=== PATIENT | male | born 1960 | race Caucasian/White ===

== ENCOUNTER 2020-05-03 11:28 | Emergency (ER) | payer OTHER ==
[~2020-05-03] VITALS: Ht 177.8 cm; Wt 104.5 kg
--- NOTE | 2020-05-03 11:47 | ED Fall/Injury ---
General Chief Complaint: Trauma-Non Activation Stated Complaint: FALL Nursing Triage Note: TO ED PER EMS WAS UNLOADING A BOX TRUCK AND FELL APX 5FT OUT OF BACK ON TO L SIDE C/O PAIN IN T SPINE AREA REDNESS NOTED. 100MCG OF FENTANYL GIVEN BY EMS. History of Present Illness Date Seen by Provider: May 03, 2020 Time Seen by Provider: 11:40 Initial Comments 59-year-old male presents with left lateral thorax pain/rib pain. Patient was unloading a box truck leaning up against a door. When the door open he fell approximately 5 feet and landed on his left side. He has some mild swelling to the left lateral aspect of his upper back. He has some pain with deep breaths but no shortness of breath. He denies any neck pain, he denies any vertebral pain. He was given 100 mcg of fentanyl prior to arrival by EMS. He was placed in a c-collar for precaution. He reports he did not hit his head or lose consciousness. Allergies and Home Medications Allergies Coded Allergies: No Known Drug Allergies (Verified Allergy, Unknown, 12/15/06) Home Medications Cyclobenzaprine HCl 10 Mg Tablet, 10 MG PO Q8H PRN for SPASMS Prescribed by: LESA SAHNI on 05/03/20 1323 Naproxen 500 Mg Tablet, 500 MG PO BID Prescribed by: LESA SAHNI on 05/03/20 1323 Patient Home Medication List Home Medication List Reviewed: Yes Review of Systems Review of Systems Constitutional: No chills, No dizziness, No fever, No weakness Eyes: No Symptoms Reported; Denies Blurred Vision, Denies Decreased Acuity Ears, Nose, Mouth, Throat: no symptoms reported Respiratory: No cough, No short of breath Cardiovascular: see HPI; No edema, No palpitations Gastrointestinal: No abdominal pain, No nausea, No vomiting Genitourinary: no symptoms reported Musculoskeletal: see HPI, back pain Skin: no symptoms reported Psychiatric/Neurological: No Symptoms Reported Past Yvhdnqy-Ygheme-Gxcwqb Hx Past Med/Social Hx: Reviewed Nursing Past Med/Soc Hx Patient Social History Alcohol Use: Denies Use Smoking Status: Never a Smoker Recent Infectious Disease Expo: No Past Medical History Reproductive Disorders: No Physical Exam Vital Signs Vital Signs - First Documented 05/03/20 11:28 Temp 36.2 Pulse 92 Resp 18 B/P (MAP) 123/87 (99) Pulse Ox 97 O2 Delivery Room Air Capillary Refill : Less Than 3 Seconds Height, Weight, BMI Height: '" Weight: lbs. oz. kg; 33.00 BMI Method: General Appearance: mild distress HEENT: PERRL/EOMI Neck: No tender lateral, No tender midline; other (C-collar placed prior to arrival) Cardiovascular: normal peripheral pulses, regular rate, rhythm Respiratory: lungs clear, normal breath sounds, other (Tenderness left lateral posterior upper thorax) Gastrointestinal: non tender, soft Pelvic: other (No tenderness in the pelvis) Back: No vertebral tenderness; other (left lateral rib tenderness) Extremities: normal range of motion, normal inspection Neurologic/Psychiatric: alert, normal mood/affect, oriented x 3 Skin: other (Mild swelling over the left lateral ribs) [place] Coma Score Best Eye Response: (4) Open Spontaneously Best Verbal Response: (5) Oriented Best Motor Response: (6) Obeys Commands Progress/Results/Core Measures Results/Orders My Orders Orders - SAHNI,LESA L DO Ribs/Unilateral With Chest (05/03/20 11:43) Cervical Spine 3 Views Or Less (05/03/20 11:43) Thoracic Spine, 2 Views Only (05/03/20 11:43) Chest Pa/Lat (2 View) (05/03/20 13:04) Ketorolac Injection (Toradol Injection) (05/03/20 13:10) Orphenadrine Inj (Ed Only) (Norflex Inje (05/03/20 13:10) Vital Signs/I&O 05/03/20 11:28 Temp 36.2 Pulse 92 Resp 18 B/P (MAP) 123/87 (99) Pulse Ox 97 O2 Delivery Room Air Blood Pressure Mean: 99 Progress Progress Note : Progress Note Patient's thorax, cervical and rib x-ray showed no acute fracture. Patient with contusion on left posterior thorax/ribs. Recommend ice for 24 to 36 hours and warm moist heat to affected area. 4% topical lidocaine with menthol. Naproxen and Norflex for muscle spasms. Patient will begin off work until 07/08/2020. If patient needs further time off for further pain medication he needs to follow-up with his primary care provider or the Worker's Comp. physician through his employer. Patient with incidental finding on right side thorax. This is not related to the patient's injury. Patient is here for a workers comp related injury. I discussed with patient he will need to establish with a primary care provider and obtain an outpatient CT for further evaluation of the abnormality on x-ray. Patient voices understanding and agrees to obtain a primary care provider. Patient is otherwise stable and will be discharged home. Diagnostic Imaging Diagonstic Imaging: Xray Plain Films/CT/US/NM/MRI: c-spine Comments [facility], [place] [id number] PT STATUS: REG ER : 1960 PHYSICIAN: LESA SAHNI DO ADMIT DATE: 05/03/20/ER Signed Date of Exam:05/03/20 CERVICAL SPINE 3 VIEWS OR LESS INDICATION: Neck pain. COMPARISON: Imaging from the same date. TECHNIQUE: Four radiographs of the cervical spine dated 05/03/2020. FINDINGS: The alignment of the cervical spine is well maintained; however, the cervicothoracic junction is not well seen and therefore not optimally evaluated. The vertebral body heights are well-maintained. No significant disc space height loss within the [id number]. Scattered facet joint degenerative changes. The dens appears unremarkable. The prevertebral soft tissues are unremarkable. IMPRESSION: No acute osseous abnormality within the limits of the exam. Diagonstic Imaging: Xray Plain Films/CT/US/NM/MRI: chest Comments [facility] [place] [facility] [id number] PT STATUS: REG ER : 1960 PHYSICIAN: LESA SAHNI DO ADMIT DATE: 05/03/20/ER Signed Date of Exam:05/03/20 RIBS/UNILATERAL WITH CHEST INDICATION: Pain. COMPARISON: Imaging from same date and from 02/12/2011 TECHNIQUE: 4 radiographs of the chest and left-sided ribs dated 05/03/2020 FINDINGS: The cardiac silhouette is within normal limits in size. No significant pulmonary vascular congestion. Tortuosity of the descending thoracic aorta. 3 cm peripherally hyperdense lesion is identified overlying the right upper lung near the ends of the right 1st and 2nd ribs. The lungs otherwise appear clear of focal pulmonary opacity. No pleural effusion. No pneumothorax. No displaced or healing rib fracture. Degenerative changes within the thoracic spine. IMPRESSION: 3 cm peripherally hyperdense lesion overlying the right upper lung. This is favored to simply relate to the right 1st and 2nd rib ends, though pulmonary nodule not totally excluded. Recommend repeat frontal radiograph of the chest with AP lordotic view for further evaluation. No displaced or healing left-sided rib fractures. No pneumothorax. Diagonstic Imaging: Xray Plain Films/CT/US/NM/MRI: other [facility] [place] [place] [facility]: [facility] REC#: [id number] PT STATUS: REG ER : 1960 PHYSICIAN: LESA SAHNI DO ADMIT DATE: 05/03/20/ER Signed Date of Exam:05/03/20 THORACIC SPINE, 2 VIEWS ONLY INDICATION: Fall with back pain. FINDINGS: AP, lateral and swimmer's views of thoracic spine reveal no acute fracture or malalignment. There is no evidence of paraspinous hematoma. There is mild diffuse endplate spurring. IMPRESSION: Mild diffuse thoracic spondylosis. No acute abnormality is identified. Diagonstic Imaging: Xray Plain Films/CT/US/NM/MRI: chest Comments [facility], [facility]. [place], [place] NAME: [facility] REC#: [id number] PT STATUS: REG ER : 1960 PHYSICIAN: LESA SAHNI DO ADMIT DATE: 05/03/20/ER Draft Date of Exam:05/03/20 CHEST PA/LAT (2 VIEW) INDICATION: Potential mass. Abnormality seen on recent chest x-ray with the apical lordotic imaging for further evaluation. Examination 2 view chest 05/03/2020 at 1:26 PM compared to 05/03/2020 at 12:28 PM FINDINGS: 2 views of the chest redemonstrate the hyperdensity within the peripheral right upper lung which now projects along the course of the right posterior 4th rib. This would suggest a likely intrathoracic abnormality versus an abnormality along the scapula. CT imaging could provide further characterization. Remaining chest is stable IMPRESSION: 1. Sclerotic appearing abnormality within the right upper chest laterally nonspecific in nature further imaging recommended. Departure Impression Primary Impression: Contusion of thoracic wall Qualified Codes: S20.222A - Contusion of left back wall of thorax, initial encounter Additional Impressions: Contusion of rib on left side Qualified Codes: S20.212A - Contusion of left front wall of thorax, initial encounter Abnormal finding on chest xray Disposition: HOME, SELF-CARE Condition: Stable Departure-Patient Inst. Patient Instructions: Rib Fracture or Bruised Rib ED, Blunt Chest Trauma (DC) Add. Discharge Instructions: Please follow-up with a primary care provider early next week for an outpatient CT of your chest and further evaluation of the abnormality noted on chest x-ray ice to affected area for 24 to 48 hours then warm moist heat 4% topical lidocaine with menthol, cream gel or patch use as directed on package All discharge instructions reviewed with patient and/or family. Voiced understanding. Scripts Naproxen (Naprosyn) 500 Mg Tablet 500 MG PO BID, #30 TAB 0 Refills Prov: LESA SAHNI DO 05/03/20 Cyclobenzaprine HCl (Cyclobenzaprine HCl) 10 Mg Tablet 10 MG PO Q8H PRN for SPASMS, #15 TAB 0 Refills Prov: LESA SAHNI DO 05/03/20 LESA SAHNI DO May 03, 2020 11:47
--- NOTE | 2020-05-03 12:43 | Diagnostic Imaging Report ---
INDICATION: Neck pain. COMPARISON: Imaging from the same date. TECHNIQUE: Four radiographs of the cervical spine dated 05/03/2020. FINDINGS: The alignment of the cervical spine is well maintained; however, the cervicothoracic junction is not well seen and therefore not optimally evaluated. The vertebral body heights are well-maintained. No significant disc space height loss within the [id number]. Scattered facet joint degenerative changes. The dens appears unremarkable. The prevertebral soft tissues are unremarkable. IMPRESSION: No acute osseous abnormality within the limits of the exam. Dictated by: Dictated on workstation # [id number]
--- NOTE | 2020-05-03 12:44 | Diagnostic Imaging Report ---
INDICATION: Fall with back pain. FINDINGS: AP, lateral and swimmer's views of thoracic spine reveal no acute fracture or malalignment. There is no evidence of paraspinous hematoma. There is mild diffuse endplate spurring. IMPRESSION: Mild diffuse thoracic spondylosis. No acute abnormality is identified. Dictated by: Dictated on workstation # [id number]
--- NOTE | 2020-05-03 12:54 | Diagnostic Imaging Report ---
INDICATION: Pain. COMPARISON: Imaging from same date and from 02/12/2011 TECHNIQUE: 4 radiographs of the chest and left-sided ribs dated 05/03/2020 FINDINGS: The cardiac silhouette is within normal limits in size. No significant pulmonary vascular congestion. Tortuosity of the descending thoracic aorta. 3 cm peripherally hyperdense lesion is identified overlying the right upper lung near the ends of the right 1st and 2nd ribs. The lungs otherwise appear clear of focal pulmonary opacity. No pleural effusion. No pneumothorax. No displaced or healing rib fracture. Degenerative changes within the thoracic spine. IMPRESSION: 3 cm peripherally hyperdense lesion overlying the right upper lung. This is favored to simply relate to the right 1st and 2nd rib ends, though pulmonary nodule not totally excluded. Recommend repeat frontal radiograph of the chest with AP lordotic view for further evaluation. No displaced or healing left-sided rib fractures. No pneumothorax. Dictated by: Dictated on workstation # [id number]
[2020-05-03] MEDS ORDERED: KETOROLAC 30 MG/ML VIAL IVP STA (13:10)
[2020-05-03] MEDS ORDERED: ORPHENADRINE 60 MG/2 ML (NORFLEX) AMP (ED ONLY) IV STA (13:10)
[2020-05-03] MEDS ORDERED: NAPR-1071 PO (13:23)
[2020-05-03] MEDS ORDERED: CYCL10TA9 PO (13:23)
--- NOTE | 2020-05-03 14:08 | Diagnostic Imaging Report ---
INDICATION: Potential mass. Abnormality seen on recent chest x-ray with the apical lordotic imaging for further evaluation. Examination 2 view chest 05/03/2020 at 1:26 PM compared to 05/03/2020 at 12:28 PM FINDINGS: 2 views of the chest redemonstrate the hyperdensity within the peripheral right upper lung which now projects along the course of the right posterior 4th rib. This would suggest a likely intrathoracic abnormality versus an abnormality along the scapula. CT imaging could provide further characterization. Remaining chest is stable IMPRESSION: 1. Sclerotic appearing abnormality within the right upper chest laterally nonspecific in nature further imaging recommended. Dictated by: Dictated on workstation # [id number]
[2020-05-03 14:46] VITALS: BP 124/75
== END 2020-05-03 14:43 | disposition home or self-care (01) ==
LOC: EDUNIT# 11:28 → ER 11:33
DX: S20.222A Contusion of left back wall of thorax, initial encounter (principal); R91.8 Other nonspecific abnormal finding of lung field; W18.30XA Fall on same level, unspecified, initial encounter
CPT/HCPCS: 71046; 71101; 72040; 72070

== ENCOUNTER → 2020-06-15 | Outpatient (CLI) | payer BC ==
[~2020-06-15] MED LIST: CATHETER FLUSH 10 ML SYR IV PRN; CYCL10TA9 PO; HOLD METFORMIN - RECEIVED CONTRAST 20 ML VIAL IV SCH; IOHEXOL 350 MG/ML 100 ML (OMNIPAQUE 350) VIAL IV ONE; NAPR-1071 PO; NS 100 ML (IVPB) BAG IV ONE
[2020-06-15 12:37] LABS: ALANINE AMINOTRANSFERASE 21 U/L (0-55); ALBUMIN 4.5 GM/DL (3.2-4.5); ALKALINE PHOSPHATASE 97 U/L (40-136); BILIRUBIN,TOTAL 0.9 MG/DL (0.1-1.0); BUN/CREATININE RATIO 15; CARBON DIOXIDE 28 MMOL/L (21-32); CHLORIDE 103 MMOL/L (98-107); CREATININE SERUM 0.79 MG/DL (0.60-1.30); GFR ESTIMATED > 60; GLUCOSE 95 MG/DL (70-105); POTASSIUM 4.6 MMOL/L (3.6-5.0); SODIUM 139 MMOL/L (135-145); TOTAL PROTEIN 7.8 GM/DL (6.4-8.2)
--- NOTE | 2020-06-15 15:23 | Diagnostic Imaging Report ---
EXAMINATION: CT chest with intravenous contrast. TECHNIQUE: Multiple contiguous axial images were obtained through the chest after the uneventful administration of intravenous contrast. All CT scans use one or more of the following dose optimizing techniques: automated exposure control, MA and/or KvP adjustment based on patient size and exam type or iterative reconstruction. HISTORY: Abnormal findings on chest radiograph COMPARISON: Chest radiograph 05/03/2020 FINDINGS: Thyroid: The thyroid is normal. Mediastinum: Heart size is normal without significant pericardial effusion. The aorta is normal in caliber. No suspicious lymphadenopathy. Lungs and airways: The lungs are clear without consolidation, pleural effusion, or pneumothorax. No suspicious pulmonary nodule. The airways are normal. Upper abdomen: The subphrenic structures are normal. Musculoskeletal: There are changes of the spine without compression fracture. There is a expansile, sclerotic lesion arising from the anterior right scapula which measures 2.7 cm (series 2 image 45). This likely corresponds to the abnormality seen on prior radiograph. IMPRESSION: 1. A 2.7 cm sclerotic, expansile lesion arising from the right scapula corresponding to abnormality seen on prior radiograph. Recommend further evaluation with MRI with and without IV contrast. 2. No other acute abnormality in the chest. Dictated by: Dictated on workstation # [id number]
== END ==
LOC: RAD 13:15
PROVIDERS: ATTEND Nurse Practitioner Family
DX: S22.42XD Multiple fractures of ribs, left side, subsequent encounter for fracture with routine healing (principal); M75.92 Shoulder lesion, unspecified, left shoulder; R93.89 Abnormal findings on diagnostic imaging of other specified body structures
CPT/HCPCS: 36415; 71260; 80053

== ENCOUNTER → 2020-07-02 | Outpatient (CLI) | payer BC ==
[~2020-07-02] MED LIST changes: -CATHETER FLUSH 10 ML SYR IV PRN; +GADOBUTROL 10 MMOL/10 ML (GADAVIST) VIAL IV ONE; -HOLD METFORMIN - RECEIVED CONTRAST 20 ML VIAL IV SCH; -IOHEXOL 350 MG/ML 100 ML (OMNIPAQUE 350) VIAL IV ONE; -NS 100 ML (IVPB) BAG IV ONE
--- NOTE | 2020-07-02 14:11 | Diagnostic Imaging Report ---
Exam: MRI right scapula without contrast. Date: July 02, 2020. Indication: 59-year-old male, fall in April. Evaluation of incidentally noted bone lesion of the scapula on prior CT chest. Comparison: CT chest with intravenous contrast June 15, 2020. Technique: Multiple noncontrast MRI sequences were obtained of the right scapula. Findings: Arising from the inferior aspect of the scapular body, there is a lesion contiguous with the intramedullary cavity measuring 3.0 x 1.4 x 2.3 cm in size diagnostic for an enchondroma. There is no abnormally thickened cartilage cap. There is no adjacent bursitis or other soft tissue abnormality. There is no identified acute fracture. There is no other marrow signal abnormality. There is a 14 mm wide full-thickness tear of the supraspinatus tendon with tendon retraction to the level of the superior humeral head. There is no fatty muscle atrophy. There are mild acromioclavicular degenerative changes without large undersurface osteophyte. Impression: 1. Benign osteochondroma arising from the inferior aspect of the scapular body without complication. The osteochondroma measures 3.0 x 1.4 x 2.3 cm in size. 2. 14 mm wide full-thickness tear of the supraspinatus tendon with tendon retraction to the level of the superior humeral head. No fatty muscle atrophy. 3. Mild acromioclavicular degenerative changes without undersurface osteophyte. 4. No acute fracture or other area of abnormal marrow signal. Dictated by: Dictated on workstation # [id number]
== END ==
LOC: RAD 09:10
PROVIDERS: ATTEND Pediatrics
DX: S46.011A Strain of muscle(s) and tendon(s) of the rotator cuff of right shoulder, initial encounter (principal); D16.01 Benign neoplasm of scapula and long bones of right upper limb; M19.011 Primary osteoarthritis, right shoulder; W19.XXXA Unspecified fall, initial encounter
CPT/HCPCS: 71550

== ENCOUNTER 2022-01-29 09:38 | Emergency (ER) | payer BC ==
[~2022-01-29] VITALS: Ht 177 cm; Wt 104.5 kg
[~2022-01-29 09:38] MED LIST changes: +CYCL10TA25 PO; -CYCL10TA9 PO; -GADOBUTROL 10 MMOL/10 ML (GADAVIST) VIAL IV ONE
[2022-01-29] MEDS ORDERED: RT-ALBUTEROL HFA 8.5 GM INHALER IH STA (09:56)
[2022-01-29] MEDS ORDERED: LACTATED RINGERS 1,000 ML IV ONE (10:00)
[2022-01-29 10:28] LABS: BASOPHILS % (AUTO) 0 % (0-10); EOSINOPHILS % (AUTO) 0 % (0-10); HEMATOCRIT 51 % (40-54); HEMOGLOBIN 17.3 g/dL (13.3-17.7); LYMPHOCYTES # (AUTO) 0.9 10^3/uL (1.0-4.0); LYMPHOCYTES % (AUTO) 7 % (12-44); MEAN CORPUSCULAR HEMOGLOBIN 31 pg (25-34); MEAN CORPUSCULAR HGB CONC 34 g/dL (32-36); MEAN CORPUSCULAR VOLUME 90 fL (80-99); MEAN PLATELET VOLUME 10.6 fL (9.0-12.2); MONOCYTES # (AUTO) 0.9 10^3/uL (0.0-1.0); MONOCYTES % (AUTO) 7 % (0-12); NEUTROPHILS % (AUTO) 85 % (42-75); PLATELET COUNT 211 10^3/uL (130-400); WHITE BLOOD COUNT 12.9 10^3/uL (4.3-11.0)
--- NOTE | 2022-01-29 10:30 | Diagnostic Imaging Report ---
INDICATION: Shortness of breath. Frontal chest obtained at 10:23 a.m. compared to 05/03/2020 FINDINGS: Heart and mediastinal silhouette are normal in appearance. The lungs are clear. There is no pneumothorax or pleural fluid. There are old left-sided rib fractures. There is a calcification over the right chest which in correlation with previous CT of 06/15/2020 appears to be exostosis of the scapula. IMPRESSION: Chronic bony changes as above with no acute process in the chest. Dictated by: Dictated on workstation # [id number]
[2022-01-29 10:37] LABS: ALBUMIN 4.5 GM/DL (3.2-4.5); POTASSIUM 4.3 MMOL/L (3.6-5.0)
[2022-01-29 10:38] LABS: CALCIUM 9.1 MG/DL (8.5-10.1)
[2022-01-29 10:39] LABS: TOTAL PROTEIN 7.8 GM/DL (6.4-8.2)
[2022-01-29 10:43] LABS: CREATININE SERUM 0.85 MG/DL (0.60-1.30)
[2022-01-29 10:47] LABS: LYMPHOCYTES % (MANUAL) 10 %; MONOCYTES % (MANUAL) 10 %; NEUTROPHILS % (MANUAL) 80 %; RBC MORPH NORMAL
[2022-01-29] MEDS ORDERED: RX-OSELTAMIVIR 75 MG (TAMIFLU) BOX OF 10 PO STA (11:10)
[2022-01-29] MEDS ORDERED: AZITHROMYCIN 250 MG TAB (ZITHROMAX) PO ONE (11:15)
[2022-01-29] MEDS ORDERED: methylPREDNISolone 125 MG (Solu-MEDROL) VIAL IVP ONE (11:15)
--- NOTE | 2022-01-29 11:18 | ED General ---
General Chief Complaint: Respiratory Problems Stated Complaint: SOB | LIGHTHEADED | BODY ACHES | Nursing Triage Note: PT STATES COUGH AND BODY ACHES SINCE YESTERDAY, DIARRHEA, CHILLS Source of Information: Patient, Family Exam Limitations: No Limitations History of Present Illness Date Seen by Provider: Jan 29, 2022 Time Seen by Provider: 09:50 Initial Comments This 61-year-old gentleman presents to the emergency room with abrupt onset of flulike symptoms yesterday including cough, myalgia, chills, diarrhea, lightheadedness, and shortness of breath. He is wheezing and tachypneic on exam. Allergies and Home Medications Allergies Coded Allergies: No Known Drug Allergies (Verified , 12/15/06) Patient Home Medication List Home Medication List Reviewed: Yes Azithromycin (Azithromycin) 250 Mg Tablet, 250 MG PO DAILY Prescribed by: THONY ISSA on 01/29/22 1120 Benzonatate (Benzonatate) 200 Mg Capsule, 200 MG PO TID PRN for COUGH Prescribed by: THONY ISSA on 01/29/22 1120 Cyclobenzaprine HCl (Cyclobenzaprine HCl) 10 Mg Tablet, 10 MG PO Q8H PRN for SPASMS Prescribed by: LESA SAHNI on 05/03/20 1323 Naproxen (Naprosyn) 500 Mg Tablet, 500 MG PO BID Prescribed by: LESA SAHNI on 05/03/20 1323 Prednisone (Prednisone) 20 Mg Tab, 40 MG PO DAILY Prescribed by: THONY ISSA on 01/29/22 1120 Review of Systems Review of Systems Constitutional: see HPI EENTM: no symptoms reported Respiratory: see HPI Cardiovascular: no symptoms reported Gastrointestinal: see HPI Genitourinary: no symptoms reported Musculoskeletal: see HPI Skin: no symptoms reported Psychiatric/Neurological: No Symptoms Reported Hematologic/Lymphatic: No Symptoms Reported Past Uivqdav-Aqdaqn-Ewfeao Hx Patient Social History Tobacco Use?: Yes Tobacco type used: Cigarettes Smoking Status: Current Everyday Smoker Substance use?: No Alcohol Use?: Yes Alcohol type: Beer Alcohol Frequency: Once in a while Past Medical History Surgeries: Yes Abdominal (EGD), Appendectomy Respiratory: Yes COPD Cardiac: No Neurological: No Reproductive Disorders: No Genitourinary: No Gastrointestinal: Yes (duodenitis) Gastroesophageal Reflux, Hiatal Hernia, Ulcer Musculoskeletal: No Endocrine: No HEENT: No 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 oz. kg; 33.00 BMI Method: General Appearance: WD/WN, Mild Distress, Obese HEENT: PERRL/EOMI, Normal ENT Inspection, Pharyngeal Erythema Neck: Normal Inspection; No JVD Respiratory: No Crackles; Wheezing, Other (Tachypnea) Cardiovascular: Regular Rate, Rhythm, No Edema, No Murmur Gastrointestinal: Non Tender, Soft Extremity: Normal Inspection, No Pedal Edema Neurologic/Psychiatric: Alert, Oriented x3, No Motor/Sensory Deficits Skin: Normal Color, Warm/Dry Progress/Results/Core Measures Suspected Sepsis SIRS Temperature: Pulse: 96 Respiratory Rate: 20 Laboratory Tests 01/29/22 10:19: White Blood Count 12.9H Blood Pressure 118 /72 Mean: 87 Laboratory Tests 01/29/22 10:19: Creatinine 0.85, Platelet Count 211, Total Bilirubin 1.0 Results/Orders Lab Results Laboratory Tests Test 01/29/22 09:57 01/29/22 10:19 Range/Units Influenza Type A (RT-PCR) Detected H Not Detecte Influenza Type B (RT-PCR) Not Detected Not Detecte SARS-CoV-2 RNA (RT-PCR) Not Detected Not Detecte White Blood Count 12.9 H 4.3-11.0 10^3/uL Red Blood Count 5.65 H 4.30-5.52 10^6/uL Hemoglobin 17.3 13.3-17.7 g/dL Hematocrit 51 40-54 % Mean Corpuscular Volume 90 80-99 fL Mean Corpuscular Hemoglobin 31 25-34 pg Mean Corpuscular Hemoglobin Concent 34 32-36 g/dL Red Cell Distribution Width 12.6 10.0-14.5 % Platelet Count 211 130-400 10^3/uL Mean Platelet Volume 10.6 9.0-12.2 fL Immature Granulocyte % (Auto) 0 % Neutrophils (%) (Auto) 85 H 42-75 % Lymphocytes (%) (Auto) 7 L 12-44 % Monocytes (%) (Auto) 7 0-12 % Eosinophils (%) (Auto) 0 0-10 % Basophils (%) (Auto) 0 0-10 % Neutrophils # (Auto) 11.0 H 1.8-7.8 10^3/uL Lymphocytes # (Auto) 0.9 L 1.0-4.0 10^3/uL Monocytes # (Auto) 0.9 0.0-1.0 10^3/uL Eosinophils # (Auto) 0.0 0.0-0.3 10^3/uL Basophils # (Auto) 0.0 0.0-0.1 10^3/uL Immature Granulocyte # (Auto) 0.0 0.0-0.1 10^3/uL Neutrophils % (Manual) 80 % Lymphocytes % (Manual) 10 % Monocytes % (Manual) 10 % Blood Morphology Comment NORMAL Sodium Level 137 135-145 MMOL/L Potassium Level 4.3 3.6-5.0 MMOL/L Chloride Level 102 98-107 MMOL/L Carbon Dioxide Level 25 21-32 MMOL/L Anion Gap 10 5-14 MMOL/L Blood Urea Nitrogen 20 H 7-18 MG/DL Creatinine 0.85 0.60-1.30 MG/DL Estimat Glomerular Filtration Rate 100 BUN/Creatinine Ratio 24 Glucose Level 126 H 70-105 MG/DL Calcium Level 9.1 8.5-10.1 MG/DL Corrected Calcium 8.7 8.5-10.1 MG/DL Total Bilirubin 1.0 0.1-1.0 MG/DL Aspartate Amino Transf (AST/SGOT) 28 5-34 U/L Alanine Aminotransferase (ALT/SGPT) 29 0-55 U/L Alkaline Phosphatase 73 40-136 U/L C-Reactive Protein High Sensitivity 11.08 H 0.00-0.50 MG/DL B-Type Natriuretic Peptide 45.9 <100.0 PG/ML Total Protein 7.8 6.4-8.2 GM/DL Albumin 4.5 3.2-4.5 GM/DL My Orders Orders - THONY KELLOGG MD Albuterol Inhaler (Albuterol) (01/29/22 09:56) Ed Iv/Invasive Line Start (01/29/22 09:57) Lactated Ringers (Lr 1000 Ml Iv Solution (01/29/22 10:00) Bnp Felicity (01/29/22 09:57) Cbc With Automated Diff (01/29/22 09:57) Comprehensive Metabolic Panel (01/29/22 09:57) Hs C Reactive Protein (01/29/22 09:57) Covid 19 Inhouse Test (01/29/22 09:57) Influenza A And B By Pcr (01/29/22 09:57) Chest 1 View, Ap/Pa Only (01/29/22 09:59) Manual Differential (01/29/22 10:19) Methylprednisolone Sod Succ (Solu-Medrol (01/29/22 11:15) Azithromycin Tablet (Zithromax Tablet) (01/29/22 11:15) Rx-Oseltamivir Caps (Rx-Tamiflu Caps) (01/29/22 11:10) Oseltamivir 75 Mg Capsule (Tamiflu 75 (01/30/22 09:00) Oseltamivir 75 Mg Capsule (Tamiflu 75 (01/30/22 09:00) Medications Given in ED Vital Signs/I&O 01/29/22 01/29/22 09:51 11:55 Temp 36.9 36.9 Pulse 96 89 Resp 20 20 B/P (MAP) 118/72 (87) 112/71 Pulse Ox 93 O2 Delivery Room Air Room Air Capillary Refill : Less Than 3 Seconds Blood Pressure Mean: 87 Progress Note : Progress Note Patient tested positive for influenza A. Had concern about his pulmonary exam. He had significant wheezing as well as tachypnea. This improved a little bit with albuterol inhaler. Oxygen saturation was running in the 93 to 94% range on room air. Solu-Medrol was administered. Due to elevated WBC and CRP in conjunction with influenza A and COPD exacerbation, azithromycin was also administered. See discharge instructions for further discussion. Diagnostic Imaging Diagonstic Imaging: Xray Plain Films/CT/US/NM/MRI: chest Comments Chest x-ray viewed by me and report reviewed. See report below: NAME: PRIYA NORIEGA [facility] REC#: [id number] PT STATUS: DEP ER : 1960 PHYSICIAN: THONY KELLOGG MD ADMIT DATE: 01/29/22/ER Signed Date of Exam:01/29/22 CHEST 1 VIEW, AP/PA ONLY INDICATION: Shortness of breath. Frontal chest obtained at 10:23 a.m. compared to 05/03/2020 FINDINGS: Heart and mediastinal silhouette are normal in appearance. The lungs are clear. There is no pneumothorax or pleural fluid. There are old left-sided rib fractures. There is a calcification over the right chest which in correlation with previous CT of 06/15/2020 appears to be exostosis of the scapula. IMPRESSION: Chronic bony changes as above with no acute process in the chest. Dictated by: Dictated on workstation # [id number] Dict: 01/29/22 1026 Trans: 01/29/22 1237 [id number] Interpreted by: JASMIN REYES MD Electronically signed by: JASMIN REYES MD 01/29/22 1237 Departure Impression Primary Impression: Influenza A Additional Impression: COPD exacerbation Disposition: 01 HOME, SELF-CARE Condition: Improved Departure-Patient Inst. Decision time for Depature: 11:13 Referrals: NO,LOCAL PHYSICIAN (PCP/Family) Primary Care Physician Patient Instructions: COPD Exacerbation, Adult ED, Flu, Adult (DC) Add. Discharge Instructions: Drink plenty of clear liquids to stay well-hydrated. Stop smoking as smoking will certainly worsen your symptoms. You may use nicot ine replacement such as patches, gum, or lozenges. Do not substitute with any other inhaled substances such as vape. Complete the entire 10 doses of Tamiflu. Do not stop taking this medication even if you are feeling better before it is complete. Start the azithromycin antibiotic tomorrow. You received your first dose in the emergency room. Obtain a pulse oximeter device from a local pharmacy or medical supply retailer. Check your oxygen a couple of times a day or when you are feeling more short of breath. If you are having multiple oxygen saturations less than 92% or any oxygen saturation less than 90%, return to the emergency room. Start prednisone this afternoon. Tomorrow, start taking prednisone early in the day so that it does not interrupt your sleep as it may cause jitteriness. Take prednisone with food or milk to avoid stomach upset. Avoid exposure to other individuals as influenza is very contagious. You may use Tylenol (acetaminophen) and/or ibuprofen for pain or fever. Tylenol dosing is 1000 mg every 6 hours, and ibuprofen dosing is 600 mg every 6 hours. Use your inhaler with a spacer up to 4 puffs in a 4-hour period of time. If you are requiring more than 4 puffs in 4 hours, return to the emergency room. Return to the ER if you have worsening symptoms despite following all of these instructions. All discharge instructions reviewed with patient and/or family. Voiced understanding. Scripts Prednisone (Prednisone) 20 Mg Tab 40 MG PO DAILY, #10 TAB 0 Refills Prov: THONY KELLOGG MD 01/29/22 Benzonatate (Benzonatate) 200 Mg Capsule 200 MG PO TID PRN for COUGH, #10 CAP Prov: THONY KELLOGG MD 01/29/22 Azithromycin (Azithromycin) 250 Mg Tablet 250 MG PO DAILY, #4 TAB Prov: THONY KELLOGG MD 01/29/22 Copy Copies To 1: [facility]/THONY MENG MD Jan 29, 2022 11:18
[2022-01-29] MEDS ORDERED: BENZ200C51 PO (11:20)
[2022-01-29] MEDS ORDERED: PRD20T PO (11:20)
[2022-01-29] MEDS ORDERED: AZIT250T12 PO (11:20)
[2022-01-29 11:55] VITALS: BP 112/71
[2022-01-30] MEDS ORDERED: OSELTAMIVIR 75 MG (TAMIFLU) CAPSULE PO SCH ×2 (09:00)
== END 2022-01-29 11:55 | disposition home or self-care (01) ==
LOC: EDUNIT# 09:38 → ER 09:40
DX: J10.1 Influenza due to other identified influenza virus with other respiratory manifestations (principal); J44.1 Chronic obstructive pulmonary disease with (acute) exacerbation; F17.210 Nicotine dependence, cigarettes, uncomplicated; Z20.822 Contact with and (suspected) exposure to COVID-19; Z28.310 Unvaccinated for COVID-19
CPT/HCPCS: 36415; 71045; 80053; 83880; 85007; 85027; 86141; 87636